=== PATIENT | male | born 1995 | race American Indian/Alaskan Native ===

== ENCOUNTER 2020-03-26 09:22 | Emergency (ER) | payer SELFPAY ==
[2020-03-26 09:30] VITALS: BP 153/90
[2020-03-26] MEDS ORDERED: oxyCODONE /ACETAMINOPHEN 5-325MG TAB PO ONE ×2 (10:59→14:25)
[2020-03-26] MEDS ORDERED: LIDOCAINE (1%) 10 MG/1 ML VIAL 20 ML MDV INFILTRATI ONE (11:00)
[2020-03-26] MEDS ORDERED: DIPHtheria,PERTUSSIS(ACELL),TETANUS VACCINE/PF 0.5 ML VIAL IM ONE (11:00)
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
--- NOTE | 2020-03-26 11:51 | XRay Report ---
RIGHT HAND 3 VIEWS INDICATION: foosh injury with pain to 2nd MC and finger. COMPARISON: None. IMPRESSION: A transverse displaced fracture is identified involving the proximal phalanx of the inde x finger. There is anterior displacement at the fracture site measuring up to 1 cm. The remaining bon y structures and joint spaces are unremarkable. No significant DJD. Signer Name: Lenin Torres Jr, MD Signed: 03/26/2020 11:47 AM Workstation Name: [id number]
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
[2020-03-26] MEDS ORDERED: ceFAZolin 1 GM VIAL IM ONE (13:25)
[2020-03-26] MEDS ORDERED: BACITRACIN ZINC OINT 28.4 GM TP ONE (13:55)
--- NOTE | 2020-03-26 14:28 | XRay Report ---
RIGHT FINGERS 3 VIEWS 1416 hours INDICATION: postreduction. COMPARISON: Earlier today at 1108 hours IMPRESSION: The displaced fracture involving the proximal phalanx of the index finger is unchanged i n position and alignment since earlier today at 1108 hours. Signer Name: Lenin Torres Jr, MD Signed: 03/26/2020 2:24 PM Workstation Name: [id number]
== END 2020-03-26 15:17 | disposition home or self-care (01) ==
LOC: ED 09:22
DX: S01.01XA Laceration without foreign body of scalp, initial encounter (principal); S69.81XA Other specified injuries of right wrist, hand and finger(s), initial encounter; W45.8XXA Other foreign body or object entering through skin, initial encounter; Y93.89 Activity, other specified; Y92.89 Other specified places as the place of occurrence of the external cause; Y99.8 Other external cause status
CPT/HCPCS: 29130; 70450; 73130; 73140; 90471; 90715; 96372; 99284; J0690

== ENCOUNTER 2020-04-01 22:18 | Emergency (ER) | payer SELFPAY ==
[2020-04-02] MEDS ORDERED: IBUPROFEN 600 MG TAB PO ONE (03:08)
--- NOTE | 2020-04-02 03:38 | Emergency Department Report ---
Upper Extremity - HPI Chief Complaint: Extremity Injury, Upper Stated Complaint: RIGHT FINGER PAIN/NEED SPLENT Upper Extremity: Right Index Finger (painful swollen) Occurred When: >5 Days Mechanism: Fall Severity: severe Symptoms: Yes Pain with Movement, Yes Limited Range of Movement (due to pain), Yes Swelling (mildly swollen), No Deformity, No Numbness, No Weakness, No Bruising/Ecchymosis, No Laceration or Abrasion Other History: Patient is a 24-year-old -[place] male with no past medical history presents to the ED with complaint of worsening right index finger pain with swelling after he slipped and fell down about a week ago. Patient was initially evaluated in this ED and was found to have displaced proximal right index finger fracture. Patient states that he was supposed to follow-up with an orthopedic surgeon but has not done so. Patient states that the splint that was applied on the index finger has come loose and is not fitting. Patient denies new injuries, nausea, vomiting, numbness and tingling or weakness of right hand or right index finger. ED Review of Systems ROS: Stated complaint: RIGHT FINGER PAIN/NEED SPLENT Other details as noted in HPI Constitutional: denies: chills, fever Eyes: denies: eye pain, eye discharge, vision change ENT: denies: ear pain, throat pain Respiratory: denies: cough, shortness of breath, wheezing Cardiovascular: denies: chest pain, palpitations Endocrine: no symptoms reported Gastrointestinal: denies: abdominal pain, nausea, diarrhea Genitourinary: denies: urgency, dysuria Musculoskeletal: joint swelling (Right index finger swelling), arthralgia (Right index finger pain and swelling). denies: back pain Skin: denies: rash, lesions Neurological: denies: headache, weakness, paresthesias Psychiatric: denies: anxiety, depression Hematological/Lymphatic: denies: easy bleeding, easy bruising ED Past Medical Hx - Past Medical History Previous Medical History?: No - Surgical History Past Surgical History?: Yes Hx Cholecystectomy: Yes - Social History Smoking Status: Never Smoker Substance Use Type: Marijuana - Medications Home Medications: Home Medications Medication Instructions Recorded Confirmed Last Taken Type cephALEXin [Keflex] 500 mg PO Q8H 7 Days #21 cap 03/26/20 Unknown Rx Ibuprofen [Motrin 800 MG tab] 800 mg PO Q8HR PRN #30 tablet 04/02/20 Unknown Rx Upper Extremity Exam - Exam General: Vital signs noted. No distress. Alert and acting appropriately. Head and Torso: No HEENT Abnormality, No Neck Tenderness, No Chest/Lungs Abnormality, No Abdominal Tenderness, No Back Tenderness Shoulder Exam: Yes Normal Range of Motion in Shoulder, No Shoulder Tenderness, No Clavicle Tenderness, No Shoulder Deformity, No AC Joint Tenderness Arm Exam: No Arm/Humerus Tenderness, No Arm Deformity Elbow: Yes Normal Range of Motion in Elbow, No Elbow Tenderness, No Elbow Deformity Forearm: No Forearm Tenderness, No Forearm Deformity, No Pain with Pronation, No Pain with Supination Wrist: Yes Normal ROM in Wrist, No Wrist Tenderness, No Wrist Deformity, No Snuffbox Tenderness, No Pain with Axial Thumb Compression Hand: Yes Hand Tenderness (Right index finger), Yes Digit Tenderness (Right index finger), Yes Normal ROM in Digit(s), No Hand Deformity, No Digit(s) Deformity, No Tendon Dysfunction CMS Exam: Yes Normal Distal Pulses, Yes Normal Capillary Refill, Yes Normal Distal Sensation, No Broken Skin ED Course Vital Signs 04/01/20 22:44 Temperature 98.2 F Pulse Rate 54 L Respiratory 18 Rate Blood Pressure 134/64 O2 Sat by Pulse 98 Oximetry ED Medical Decision Making - Medical Decision Making This is a 24-year-old -[place] male with no past medical history presents to the ED with complaint of worsening right index finger pain with swelling after he slipped and fell down about a week ago. Patient was initially evaluated in this ED and was found to have displaced proximal right index finger fracture. Patient states that he was supposed to follow-up with an orthopedic surgeon but has not done so. Patient states that the splint that was applied on the index finger has come loose and is not fitting. In the ED, patient is alert and oriented x3 and is not in distress. The loose fitting right index finger splint was removed and and patient fitted with a new well fitting index finger splint. Patient was referred to the orthopedic surgeon communication center operator Dr. Nicole for follow-up. Patient was also given a prescription for pain medications in the ED. Patient was otherwise advised to return to the ED immediately if symptoms get worse. - Differential Diagnosis finger fracture; finger sprain; finger muscle strain Critical care attestation.: If time is entered above; I have spent that time in minutes in the direct care of this critically ill patient, excluding procedure time. ED Disposition Clinical Impression: Displaced fracture of distal phalanx of finger Qualifiers: Encounter type: subsequent encounter Finger: index finger Fracture type: closed Laterality: right Fracture healing: with routine healing Qualified Code(s): S62.630D - Displaced fracture of distal phalanx of right index finger, subsequent encounter for fracture with routine healing Disposition: TO HOME OR SELFCARE Is pt being admited?: No Does the pt Need Aspirin: No Condition: Stable Instructions: Finger Fracture, Adult, [id number] Additional Instructions: Take medication with food, drink plenty of fluids and follow-up with the orthopedic surgeon communication center operator Dr. Nicole for further evaluation. Return to the ED immediately if symptoms get worse. Prescriptions: Ibuprofen [Motrin 800 MG tab] 800 mg PO Q8HR PRN #30 tablet PRN Reason: pain Referrals: [facility] [Provider Group] - 3-5 Days ROBERT NICOLE MD [Staff Physician] - 3-5 Days Time of Disposition: 03:42 Print Language: PRYDEINIG
[2020-04-02 04:08] VITALS: BP 130/70
== END 2020-04-02 04:06 | disposition home or self-care (01) ==
LOC: ED 22:18
DX: S62.630D Displaced fracture of distal phalanx of right index finger, subsequent encounter for fracture with routine healing (principal); F12.10 Cannabis abuse, uncomplicated; Z90.49 Acquired absence of other specified parts of digestive tract; Y92.89 Other specified places as the place of occurrence of the external cause
CPT/HCPCS: 82962

== ENCOUNTER 2020-04-08 22:01 | Emergency (ER) | payer SELFPAY | END 2020-04-09 02:37 | disposition left against medical advice (07) | LOC: ED 22:01 | DX: T14.8XXD Other injury of unspecified body region, subsequent encounter (principal); Z53.21 Procedure and treatment not carried out due to patient leaving prior to being seen by health care provider ==